=== PATIENT | female | born 1970 | race Two or more races ===

== ENCOUNTER 2016-11-23 07:26 | Emergency (ER) | payer OTHER ==
[~2016-11-23] VITALS: Ht 154.9 cm; Wt 88.5 kg
[~2016-11-23 07:26] MED LIST: ALBUPOW26 XX; ATEN-60 PO; BENA20TA4 OR
[2016-11-23 08:10] VITALS: BP 150/83
[2016-11-23] MEDS ORDERED: KETOROLAC TROMETH 60MG/2ML VIAL IM ONE (09:15)
== END 2016-11-23 10:06 | disposition home or self-care (01) ==
LOC: ER 07:26 → EDBD 07:26 → ER 10:06
DX: S70.02XA Contusion of left hip, initial encounter (principal); J45.909 Unspecified asthma, uncomplicated; I10 Essential (primary) hypertension; Z88.5 Allergy status to narcotic agent; W17.89XA Other fall from one level to another, initial encounter; Y93.89 Activity, other specified; Y99.9 Unspecified external cause status; Y92.89 Other specified places as the place of occurrence of the external cause
CPT/HCPCS: 73080; 73502; 96372; 99284; J1885

== ENCOUNTER 2023-03-31 20:55 | Emergency (ER) | payer MEDICAID, OTHER ==
[~2023-03-31] VITALS: Ht 154.9 cm; Wt 86.4 kg
[~2023-03-31 20:55] MED LIST changes: +BENA-36 OR; -BENA20TA4 OR
[2023-03-31 21:12] VITALS: BP 150/65; PULSE 96; RESP 18; O2SAT 94
[2023-03-31 21:57] LABS: Basophils # (auto) 0 10 ^3/uL (0-0.2); Basophils % (auto) 0.5 % (0.0-2.0); Eosinophils # (auto) 0.4 10 ^3/uL (0-0.8); Hematocrit 39.4 % (36.0-46.0); Hemoglobin 13.3 g/dL (12.2-16.2); Lymphocytes # (auto) 0.9 10 ^3/uL (0.4-5.4); Lymphocytes % (auto) 10.3 % (10.0-50.0); Mean Corpuscular Hemoglobin 29.1 pg (28.0-32.0); Mean Corpuscular Hgb Conc. 33.7 g/dL (32.0-36.0); Mean Corpuscular Volume 86.3 fL (80.0-100.0); Monocytes # (auto) 0.4 10 ^3/uL (0-1.3); Monocytes % (auto) 4.9 % (0.0-12.0); Neutrophils # (auto) 7.1 10 ^3/uL (1.6-8.6); Neutrophils % (auto) 79.3 % (37.0-80.0); Nucleated Red Blood Cells % 0.1 %; Red Blood Cells 4.56 10^6/uL (4.0-5.20)
[2023-03-31 22:16] LABS: Albumin 3.8 g/dL (3.4-5.0); Calcium 8.6 mg/dL (8.5-10.1)
[2023-03-31 22:19] LABS: BUN/Creatinine Ratio 11.3 (10.0-20.0); Bilirubin, Total 0.4 mg/dL (0.2-1.0); Total Protein 7.7 g/dL (6.4-8.2)
== END 2023-04-01 04:16 | disposition left against medical advice (07) ==
LOC: EDBD 20:55 → ER 20:55
DX: R10.11 Right upper quadrant pain (principal); R42 Dizziness and giddiness; R11.2 Nausea with vomiting, unspecified; Z53.21 Procedure and treatment not carried out due to patient leaving prior to being seen by health care provider
CPT/HCPCS: 36415; 74176; 80053; 83690; 85025